=== PATIENT | female | born 1990 ===

== ENCOUNTER 2017-01-17 01:31 | Emergency (ER) | payer OTHER ==
[~2017-01-17] VITALS: Ht 170.2 cm; Wt 115.0 kg
[2017-01-17 01:38] VITALS: TEMP 98.1; Ht 170.2 cm; Wt 115.0 kg
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
[2017-01-17] MEDS ORDERED: DIPHENHYDRAMINE 50 MG INJ ONE (02:16)
[2017-01-17] MEDS ORDERED: HALOPERIDOL 5 MG INJ ONE (02:16)
[2017-01-17] MEDS ORDERED: LORAZEPAM 2 MG INJ ONE (02:17)
[2017-01-17] MEDS ORDERED: LORAZEPAM 2 MG INJ IM ONE (02:30)
[2017-01-17] MEDS ORDERED: DIPHENHYDRAMINE 50 MG INJ IM ONE (02:30)
[2017-01-17 02:47] LABS: BASOPHILS % 0.6 % (0.0-2.0); EOSINOPHILS # 0.2 10^3/ul (0.0-0.5); EOSINOPHILS % 3.5 % (0.0-7.0); HEMATOCRIT 39.3 % (37.0-47.0); HEMOGLOBIN 13.7 g/dl (12.0-16.0); LYMPHOCYTES # 3.5 10^3/ul (0.8-2.9); MEAN CORPUSCULAR HEMOGLOBIN 31.9 pg (29.0-33.0); MEAN CORPUSCULAR HGB CONC 34.9 g/dl (32.0-37.0); MEAN CORPUSCULAR VOLUME 91.6 fl (82.0-101.0); MONOCYTE # 0.4 10^3/ul (0.3-0.9); NEUTROPHIL # 2.4 10^3/ul (1.6-7.5); NEUTROPHILS % 36.6 % (39.0-77.0); PLATELET COUNT 454 10^3/UL (140-415); RED BLOOD COUNT 4.29 10^6/ul (4.20-5.40); RED CELL DISTRIBUTION WIDTH 11.6 % (11.5-14.5); WHITE BLOOD COUNT 6.6 10^3/ul (4.8-10.8)
[2017-01-17 03:11] LABS: ALANINE AMINOTRANSFERASE 27 IU/L (13-69); ALBUMIN 4.1 g/dl (3.3-4.9); ALBUMIN/GLOBULIN RATIO 1.41; ALKALINE PHOSPHATASE 94 IU/L (42-121); ANION GAP 20 (8-16); ASPARTATE AMINO TRANSFERASE 18 IU/L (15-46); BLOOD UREA NITROGEN 6 mg/dl (7-20); CARBON DIOXIDE 21 mmol/L (21-31); CHLORIDE 107 mmol/L (97-110); CREATININE 0.66 mg/dl (0.44-1.00); GLUCOSE 253 mg/dl (70-220); POTASSIUM 3.7 mmol/L (3.5-5.1); SODIUM 144 mmol/L (135-144)
[2017-01-17 03:13] LABS: ACETAMINOPHEN < 10.0 ug/ml (10.0-30.0); SALICYLATE < 1.0 mg/dl (5.0-30.0)
[2017-01-17 03:46] VITALS: BP 106/72; PULSE 121; RESP 20
== END 2017-01-17 03:33 ==
LOC: E/R 01:31
DX: F10.10 Alcohol abuse, uncomplicated (principal); E11.9 Type 2 diabetes mellitus without complications; Z02.89 Encounter for other administrative examinations
CPT/HCPCS: 36415; 80053; 80306; 82962; 84703; 85025; 96372; 99284; J1200; J1630; J2060